=== PATIENT | female | born 2000 ===

== ENCOUNTER 2023-08-20 20:00 | Outpatient (CLI) | payer SELFPAY ==
[2023-08-20] VITALS (8 sets, daily range): BP systolic 106–130; BP diastolic 65–70; PULSE 64–90; RESP 16; TEMP 36.2; BMI 37.9
[2023-08-20 21:20] LABS: Add Urine Microscopic? NO; Bilirubin Urine Neg (Negative); Blood Urine Neg (Negative); Glucose Urine UA Norm (Normal); Ketones Urine Negative (Negative); Leukocyte Esterase Urine Negative (Negative); Nitrate Urine Negative (Negative); Protein Urine Neg (Negative); Specific Gravity, Urine 1.005 (1.005-1.030); Urine Appearance Clear (CLEAR); Urine Color Colorless (Yellow); Urobilinogen Urine Neg (Negative); pH Urine 7 (5-7)
[2023-08-20 21:21] LABS: Charge for UA Resulting for Rev
== END 2023-08-20 21:44 | disposition home or self-care (01) ==
LOC: OPOB 20:01 → OBGYN 20:02
PROVIDERS: Visit Provider Family Medicine
DX: O26.899 Other specified pregnancy related conditions, unspecified trimester (principal); Z3A.00 Weeks of gestation of pregnancy not specified; R10.9 Unspecified abdominal pain
CPT/HCPCS: 59025; 81003; 99211